=== PATIENT | male | born 2000 | race Caucasian/White ===

== ENCOUNTER 2024-11-03 04:44 | Emergency (ER) | payer BC, SELFPAY ==
[2024-11-03 04:46] VITALS: BP 150/80; PULSE 115; RESP 18; TEMP 36.8; O2SAT 98
[2024-11-03 04:49] VITALS: BP 150/80; PULSE 112; RESP 18; TEMP 36.8; O2SAT 99
--- NOTE | 2024-11-03 05:09 | EDS_ITS ---
HPI History of Present Illness Chief Complaint: General Illness Informant: patient Narrative Narrative: 24-year-old male wondering if he had a heat stroke. 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 That went away and he felt better, but he comes off of shift this morning feeling very hot, he had been sweating the whole time, he is fatigued, and he has pain in his hands and feet that he states is related to a rash that has been there for the last 2 or 3 days. He also has a sore throat. He has been drinking plenty of fluids, he had 4 or 5 bottles of water this past shift supervisor. [facility] Medical History Broken wrist Medical History no medical history Home Medications ?Medication ?Instructions ?Recorded ?Last Taken ?Type NK 11/03/24 Unknown History Allergy/AdvReac Type Severity Reaction Status Date / Time No Known Allergies Allergy Verified 11/03/24 04:45 Family History no significant family his Social History Smoking Status: Never smoker ROS ROS ED Constitutional Constitutional ED: Reports chills, fever(s) and sweats Eyes Eyes: Denies change in vision or diplopia ENT ENT ED: Reports sore throat; Denies rhinorrhea Cardiovascular Cardiovascular: Denies chest pain or palpitations Respiratory/Chest Respiratory/Chest: Denies cough or dyspnea Gastrointestinal Gastrointestinal: Denies abdominal pain, diarrhea, nausea or vomiting Genitourinary Genitourinary ED: Denies dysuria or hematuria Musculoskeletal Musculoskeletal: Reports as per HPI and extremity pain; Denies back pain or neck pain Integumentary Reports rash; Denies abscess Neurologic Neurologic: Reports headache(s); Denies paresthesias or weakness Psychiatric Psychiatric: Denies anxiety or suicidal thoughts EXAM Physical Exam Const Vital Signs: 11/03/24 04:46 11/03/24 04:46 11/03/24 04:49 Temperature 98.3 F 98.3 F Temperature Source Oral Oral Pulse Rate 115 H 112 H Respiratory Rate 18 18 Respiratory Pattern Normal Blood Pressure 150/80 H 150/80 H Blood Pressure Mean 103 103 Pulse Ox 98 99 Oxygen Delivery Method Room Air Room Air Positive well nourished and well developed Constitutional Narrative: Well-appearing General Appearance ED: well developed and NAD HEENT Reports moist mucous membranes HEENT Narrative: Some posterior pharyngeal erythema, there is 1 erythematous spot in the middle of the tongue. No hard palatal or oral mucosal lesions. No [place] spots. normocephalic and atraumatic Eyes PERRL and EOMs intact bilaterally Neck full ROM, no lymphadenopathy and supple Resp normal respiratory effort and clear to auscultation bilaterally Cardio regular rate, regular rhythm and no murmurs GI non-tender and non-distended Auscultation: normoactive bowel sounds Palpation: soft Back/Spine no CVA tenderness General Back: other FROM Extremity Extremity Narrative: There is an erythematous spotted rash on the palms and soles, faint erythema blanching none petechial. On the dorsum of his feet, there are a couple of raised erythematous lesions that are most consistent with papules, nonpetechial. General Extremety ED: Negative for edema, pulses abnormal or tenderness General Extremity: Negative for edema or pulses abnormal Neuro oriented x3, CN's II-XII intact bilaterally and no sensory deficits noted Sensorium / Orientation: awake and alert Motor Exam: strength 5/5 throughout Psych mental status grossly normal Skin no wounds Skin Narrative: Non-petechial blanching erythematous rash on the palms and soles which are tender, and some erythema in the posterior pharynx no other mucosal lesions. No other rash. MDM MDM MDM Narrative Medical decision making narrative: As I advised the patient, this is all consistent with usdz-wmsq-xqc-mouth disease and I propose that his fever from 3-4 days ago was related to that rather than heat-related illness. At this point the patient states that his son was diagnosed with hand-foot and mouth disease about a month ago. I think it is related. I offered some IV fluids since he feels hot and fatigued, and has a mild resting tachycardia. He preferred to do a urinalysis to see if he looked dehydrated first. This was done, it is normal except for a specific gravity of 1.025, suggesting mild dehydration. At this time his heart rate is 99 he feels well he is able to drink some fluids and declines an IV for IV fluids which I think is reasonable, especially since he is going home and to a cool environment they do have air conditioning. Advised to drink plenty of fluids. Lab Data Attestation: I reviewed the patient's lab results. Labs: Laboratory Results - last 24 hr 11/03/24 05:18 Urine Color Yellow Urine Clarity Clear Urine pH 5.0 Ur Specific [place] 1.025 Urine Protein 15 H Urine Glucose (UA) Normal Urine Ketones Negative Urine Occult Blood Negative Urine Nitrite Negative Urine Bilirubin Negative Urine Urobilinogen Normal Ur Leukocyte Esterase Negative Urine RBC 0 SEEN Urine WBC 0-5 SEEN Ur Squamous Epith Cells 0 SEEN Urine Bacteria RARE Urine Mucus RARE Discharge Plan Triage Chief Complaint: General Illness ED Provider: Timbo Calle Dx/Rx/DC Orders Clinical Impression: Hand, foot and mouth disease, Mild dehydration Instructions: Hand Foot Mouth Disease Prescriptions: No Action NK Primary Care Provider: Care Physician,No Primary Referrals: Care Physician,No Primary [Primary Care Provider] - 1 Week if not improving Print Language: Greek Disposition Disposition: Home, Self Care
--- OUTSIDE RECORDS SUMMARY | 2024-11-03 05:22 | XMS RPT_ITS | CCD ---
Author Organization [facility] Care Team Providers Care Traffic Checker Name Role Phone Yung Philip Attending Unavailable Assessment, Health Risk Attending Unavaila [employer] [facility] Care Physician, No Primary Primary Care Unava ilable Results Test Name Value Interpretation Reference Range Facil ity Comprehensive Metabolic Prof ilon 06-19-2022 ALB Normal 3.2-5.0 [facility] Comment on above: Result Comment: NO S HOW Performed By: #### L 500.4100, L500.4050, L3600.3400 #### [facility] [address] [place], [address] ALK P Normal 45-117 [facility] Comment on above: Result Comment: NO S HOW Performed By: #### L 500.4100, L500.4050, [id number] #### [facility] [address] [place], [address] ALT Normal 16-61 [facility] Comment on above: Result Comment: NO S HOW Performed By: #### L 500.4100, L500.4050, [id number] #### [facility] [address] [place], [address] AST Normal 15-37 [facility] Comment on above: Result Comment: NO S HOW Performed By: #### L 500.4100, L500.4050, [id number] #### [facility] [address] [place], [address] BUN Normal 7-18 [facility] Comment on above: Result Comment: NO S HOW Performed By: #### L 500.4100, L500.4050, [id number] #### [facility] [address] [place], [address] BUN/CRE Normal 10-20 [facility] Comment on above: Result Comment: NO S HOW Performed By: #### L 500.4100, L500.4050, [id number] #### [facility] [address] [place], [address] CA,Total Normal 8.5-10.1 [facility] Comment on above: Result Comment: NO S HOW Performed By: #### L 500.4100, L500.4050, [id number] #### [facility] [address] [place], [address] CL Normal 98-107 [facility] Comment on above: Result Comment: NO S HOW Performed By: #### L 500.4100, L500.4050, [id number] #### [facility] [address] [place], [address] CO2 Normal 21.0-32.0 [facility] Comment on above: Result Comment: NO S HOW Performed By: #### L 500.4100, L500.4050, [id number] #### [facility] [address] [place], [address] CREAT,SERUM Normal 0.70-1.30 [facility] Comment on above: Result Comment: NO S HOW Performed By: #### L 500.4100, L500.4050, [id number] #### [facility] [address] [place], [address] EST GFR Normal >60 [facility] Comment on above: Result Comment: NO S HOW Performed By: #### L 500.4100, L500.4050, [id number] #### [facility] [address] [place], [address] EST GFR - AA Normal >60 [facility] Comment on above: Result Comment: NO S HOW Performed By: #### L 500.4100, L500.4050, [id number] #### [facility] [address] [place], [address] GAP Normal 5-15 [facility] Comment on above: Result Comment: NO S HOW Performed By: #### L 500.4100, L500.4050, [id number] #### [facility] [address] [place], [address] GLU Normal 74-106 [facility] Comment on above: Result Comment: NO S HOW Performed By: #### L 500.4100, L500.4050, [id number] #### [facility] [address] [place], [address] Potassium Normal 3.5-5.1 [facility] Comment on above: Result Comment: NO S HOW Performed By: #### L 500.4100, L500.4050, [id number] #### [facility] [address] [place], [address] T BILI Normal 0.20-1.00 [facility] Comment on above: Result Comment: NO S HOW Performed By: #### L 500.4100, L500.4050, [id number] #### [facility] [address] [place], [address] T PROT Normal 6.4-8.2 [facility] Comment on above: Result Comment: NO S HOW Performed By: #### L 500.4100, L500.4050, [id number] #### [facility] [address] [place], [address] Comprehensive Metabolic Profil Normal 136-145 [facility] Comment on above: Result Comment: NO S HOW Performed By: #### L 500.4100, L500.4050, [id number] #### [facility] [place] [facility] [address] [place], [address] Lipid Profileon 06-19-2022 CHOL Normal 200 [facility] Comment on above: Result Comment: NO S HOW Performed By: #### L 500.4100, L500.4050, [id number] #### [facility] [address] [place], [address] HDL Normal [facility] Comment on above: Result Comment: NO S HOW Performed By: #### L 500.4100, L500.4050, [id number] #### [facility] [address] [place], [address] LDL Normal 0-130 [facility] Comment on above: Result Comment: NO S HOW Performed By: #### L 500.4100, L500.4050, [id number] #### [facility] [address] [place], [address] TRIG Normal [facility] Comment on above: Result Comment: NO S HOW Performed By: #### L 500.4100, L500.4050, [id number] #### [facility] [address] [place], [address] VLDL Normal 5-40 [facility] Comment on above: Result Comment: NO S HOW Performed By: #### L 500.4100, L500.4050, [id number] #### [facility] [address] [place], [address] Nicotine Screen Bloodon 0 COTININE BLOOD Normal CUTOFF= 0.3 [facility] Comment on above: Result Comment: NO S HOW Performed By: #### L 500.4100, L500.4050, [id number] #### [facility] [address] [place], [address] NICOTINE BLOOD Normal CUTOFF= 0.3 [facility] Comment on above: Result Comment: NO S HOW Performed By: #### L 500.4100, L500.4050, [id number] #### [facility] [address] [place], [address] Office Visit Reporton [address] [facility] [address] [place] [address] OFFICE VISIT Date of Service: 12/28/21 MR#: [id number] Acct: [id number] Patient: KWAN CRAIN Rep #: [id number] : 2000 Provider: MICHAELA north Age/Sex: 21/M Location: [facility] Status: Signed Intake Intake Visit Reasons: PE DRUG SCREEN/WILL-EDUARD Office Procedures Now [facility] Billing Sheet Testing Pre-Employment Drug Screen: Yes 01/01/22 0757 Date Yung Velázquez Signature: Date (if applicable) CC: Normal [facility] Encounters Encounter Date Encounter Type Care Provider Facility Start: 06-19-2022 ambulatory Health Risk Assessment Facility:[facility] Start: 12-28-2021 End: 12-28-2021 ambulatory Yung Philip Facility:[facility] Payers Date Payer Category Payer Self-pay Unknown [id number] [id number] Unknown [id number] [id number]. [id number] Summary Purpose Family History No Family History Records Found Advance Directives No Advanced Directives Records Found Additional Source Comments (unrecognized sect ion and content) No Status Records Found INFORMATION SOURCE (unrecogn ized section and content) DATE CREATED AUTHOR 06/22/2022 [facility] FOR RECORDS PERTAINING TO PATIENTS WHO ARE OR HAVE BEEN ENROLLED IN A CHEMICAL DEPENDENCY/SUBSTANCEABUSE PROGRAM, SOME INFORMATION MAY BE OMITTED. This clinical summary was aggregated from multiple sources. Caution should be exercised in using it in the provision of clinical care. This summary normalizes information from multiple sources, and as a consequence, information in this document may materially change the coding, format and clinical context of patient data. In addition, data may be omitted in some cases. CLINICAL DECISIONS SHOULD BE BASED ON THE PRIMARY CLINICAL RECORDS. [facility]. provides no warranty or guarantee of the accuracy or completeness of information in this document.
[2024-11-03 05:24] LABS: Red Blood Cells-Urine 0 SEEN /hpf (0-5); Squamous Epithelial Cells - UA 0 SEEN /hpf (0-5)
[2024-11-03 05:29] LABS: Color, Urine Yellow (Yellow); Glucose, Dipstick Normal (Normal); Ketone-Dipstick Negative (Negative); Leukocyte Esterase-Dipstick Negative /ul (Negative); Nitrite-Dipstick Negative (Negative); Occult Blood-Urine Negative /ul (Negative); Protein-Dipstick 15 mg/dl (Negative); Specific Gravity, Urine 1.025 (1.002-1.030); Urine Bilirubin Dipstick Negative (Negative); Urine Clarity Clear (Clear); Urine Urobilinogen Normal (Normal)
[2024-11-03 06:05] LABS: Bacteria RARE /hpf (None Seen); Mucous, Urine RARE /hpf (<or=2+); White Blood Cells 0-5 SEEN /hpf (0-5)
[2024-11-03 06:33] VITALS: BP 128/73; PULSE 91; RESP 16; TEMP 36.3; O2SAT 99
== END 2024-11-03 06:33 | disposition home or self-care (01) ==
PROVIDERS: Emergency Provider Emergency Medicine; Visit Provider Emergency Medicine
DX: B08.4 Enteroviral vesicular stomatitis with exanthem (principal); E86.0 Dehydration
CPT/HCPCS: 81001; 99282

== ENCOUNTER 2025-04-17 01:39 | Emergency (ER) | payer BC, OTHER, SELFPAY ==
[2025-04-17 01:40] VITALS: BP 170/79; PULSE 80; RESP 15; TEMP 36.2; O2SAT 100; BMI 30.6
--- NOTE | 2025-04-17 02:13 | EX.ED.UPPERE ---
HPI History of Present Illness HPI Narrative: Patient was seen and examined after presenting to ED for evaluation of left finger injury he was at work working on some sort of machine was using a hammer ended up smacking the very distal tip of his left second digit no open wounds no medical problems. Chief Complaint: Upper Extremity Injury [facility] Medical History Broken wrist Home Medications ?Medication ?Instructions ?Recorded ?Last Taken ?Type NK 11/03/24 Unknown History Allergy/AdvReac Type Severity Reaction Status Date / Time No Known Allergies Allergy Verified 04/17/25 01:41 Social History Smoking Status: Never smoker ROS ROS ED ROS Narrative Pertinent Positives: Hammer injury to left second digit at the distal tip Pertinent Negatives: Open wounds bleeding disorders medications inability to move finger The remainder of review of systems negative unless otherwise stated in the HPI above. Systems reviewed including constitutional, psychiatric, cardiovascular, respiratory, integument, HENT, gastrointestinal. EXAM Physical Exam Narrative Exam Narrative: Afebrile hemodynamically stable does not appear toxic or in distress normocephalic atraumatic he has no open wounds to the digit some mild swelling involving the fingertip itself nail appears intact he has intact range of motion intact MSPs intact sensation to the distal tip of the finger does have tenderness on palpation of that distal tip Const Vital Signs: 04/17/25 01:40 Temperature 97.2 F L Temperature Source Temporal Pulse Rate 80 Respiratory Rate 15 Blood Pressure 170/79 H Blood Pressure Mean 109 Pulse Ox 100 Oxygen Delivery Method Room Air MDM MDM MDM Narrative Medical decision making narrative: Nursing notes, triage notes, available previous documentation, and vital signs were reviewed. Any discrepancies noted were addressed. Differential Diagnoses: We will evaluate for fracture but low suspicion for dislocation Imaging Reviewed: Personally reviewed and interpreted by me: Finger x-ray no dislocation I do not see any obvious fracture besides maybe a slight fracture at the very distal tip. Official x-ray interpretation reporting a fracture at the very distal tip of the finger. Previous Documentation Reviewed: None available or applicable at this time. ED Course: Patient presenting with workplace injury injury to his second digit with a hammer we will get x-rays he can go ahead and ice and take acetaminophen and ibuprofen. Patient has a fracture at the distal tip of the finger. He is stable for discharge This note was made utilizing voice recognition software. All attempts were made to correct spelling or other errors prior to note completion. However, due to the fast-paced nature of emergency medicine, some errors may still be present. Discharge Plan Triage Chief Complaint: Upper Extremity Injury ED Provider: Jd Neff Dx/Rx/DC Orders Clinical Impression: Injury, finger, Fracture of finger of left hand Instructions: ED Fracture, Finger, Closed Prescriptions: No Action NK Primary Care Provider: Care Physician,No Primary Referrals: Care Physician,No Primary [Primary Care Provider, Medical] Activity Restrictions/Additional Instructions: Ice your finger is much as you can tolerate follow-up with your primary care doctor it is broken otherwise known is fractured at the very tip of your finger Print Language: Andorran Disposition Disposition: Home, Self Care
--- NOTE | 2025-04-17 02:15 | RAD_ITS ---
PROCEDURE: FINGER(S) MIN 2 VIEWS 04/17/2025 REASON FOR EXAM: INJURY LEFT 2ND DIGIT TECHNIQUE: Procedure Code: RADFIN Modality: DX Procedure: FINGER(S) MIN 2 VIEWS Laterality: Left. COMPARISON: None. FINDINGS: Acute nondisplaced fracture of the tip of the distal phalanx of the 2nd finger. Overlying soft tissue edema and swelling. Normal metacarpal head. Normal metacarpophalangeal joint. Normal proximal phalanx. Normal middle phalanx. Normal proximal interphalangeal joint. Normal distal interphalangeal joint. RAD/Finger(s) Min 2 Views IMPRESSION: Acute nondisplaced fracture of the tip of the distal phalanx of the 2nd finger. Overlying soft tissue edema and swelling. [facility]
--- OUTSIDE RECORDS SUMMARY | 2025-04-17 02:53 | XMS RPT_ITS | CCD ---
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 Izquierdo Emergency Provider Timbo Calle Attending Unavailable Care Physician, No Primary Primary Care Unava ilable Problems Problem Classification Problem Date Documented Da te Episodic/Chronic Fluid and electrolyte disorders (1 source) Mild dehydration; Translations: [Dehydration] 11-03-2024 Episodic Other skin disorders (1 source) Rash and other nonspecific skin eruption; Translations: [Rash and other nonspecific skin eruption] Onset: 11-09-2024 Episodic Viral infection (1 source) Enteroviral vesicular stomatitis with exanthem; Translations: [Enteroviral vesicular stomatitis with exanthem] 11-03-2024 Episodic Results Test Name Value Interpretation Reference Range Facility Bilirubin Test strip Ql (U)O rdered By: Timbo Calle on 11-03-2024 Bilirubin Ql (U) Negative Negative [facility] Emergency Department Summary on 11-03-2024 Emergency Department Summary [facility] Medical Records Department [address] [place] [id number] Emergency Department Summary 11/03/24 MR#: [id number] Acct: [id number] Name: KWAN CHAPMAN Rep #: [id number] : 2000 24 From: Timbo Calle MD PCP: Care Physician,No Primary Status:REG ER Location: ED HPI History of Present Illness Chief Complaint: General Illness Informant: patient Narrative Narrative: 24-year-old male wondering if he had a heat stroke. 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 That went away and he felt better, but he comes off of shift this morning feeling very hot, he had been sweating the whole time, he is fatigued, and he has pain in his hands and feet that he states is related to a rash that has been there for the last 2 or 3 days. He also has a sore throat. 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 [facility] Medical History Broken wrist Medical History no medical history Home Medications ???Medication ???Instructions ???Recorded ???Last Taken ???Type NK 11/03/24 Unknown History Allergy/AdvReac Type Severity Reaction Status Date / Time No Known Allergies Allergy Verified 11/03/24 04:45 Family History no significant family his Social History Smoking Status: Never smoker ROS ROS ED Constitutional Constitutional ED: Reports chills, fever(s) and sweats Eyes Eyes: Denies change in vision or diplopia ENT ENT ED: Reports sore throat; Denies rhinorrhea Cardiovascular Cardiovascular: Denies chest pain or palpitations Respiratory/Chest Respiratory/Chest: Denies cough or dyspnea Gastrointestinal Gastrointestinal: Denies abdominal pain, diarrhea, nausea or vomiting Genitourinary Genitourinary ED: Denies dysuria or hematuria Musculoskeletal Musculoskeletal: Reports as per HPI and extremity pain; Denies back pain or neck pain Integumentary Reports rash; Denies abscess Neurologic Neurologic: Reports headache(s); Denies paresthesias or weakness Psychiatric Psychiatric: Denies anxiety or suicidal thoughts EXAM Physical Exam Const Vital Signs: 11/03/24 04:46 11/03/24 04:46 11/03/24 04:49 Temperature 98.3 F 98.3 F Temperature Source Oral Oral Pulse Rate 115 H 112 H Respiratory Rate 18 18 Respiratory Pattern Normal Blood Pressure 150/80 H 150/80 H Blood Pressure Mean 103 103 Pulse Ox 98 99 Oxygen Delivery Method Room Air Room Air Positive well nourished and well developed Constitutional Narrative: Well-appearing General Appearance ED: well developed and NAD HEENT Reports moist mucous membranes HEENT Narrative: Some posterior pharyngeal erythema, there is 1 erythematous spot in the middle of the tongue. No hard palatal or oral mucosal lesions. No Koplik spots. normocephalic and atraumatic Eyes PERRL and EOMs intact bilaterally Neck full ROM, no lymphadenopathy and supple Resp normal respiratory effort and clear to auscultation bilaterally Cardio regular rate, regular rhythm and no murmurs GI non-tender and non-distended Auscultation: normoactive bowel sounds Palpation: soft Back/Spine no CVA tenderness General Back: other FROM Extremity Extremity Narrative: There is an erythematous spotted rash on the palms and soles, faint erythema blanching none petechial. On the dorsum of his feet, there are a couple of raised erythematous lesions that are most consistent with papules, nonpetechial. General Extremety ED: Negative for edema, pulses abnormal or tenderness General Extremity: Negative for edema or pulses abnormal Neuro oriented x3, CN's II-XII intact bilaterally and no sensory deficits noted Sensorium / Orientation: awake and alert Motor Exam: strength 5/5 throughout Psych mental status grossly normal Skin no wounds Skin Narrative: Non-petechial blanching erythematous rash on the palms and soles which are tender, and some erythema in the posterior pharynx no other mucosal lesions. No other rash. MDM MDM MDM Narrative Medical decision making narrative: As I advised the patient, this is all consistent with xlte-gtgt-dwo-mouth disease and I propose that his fever from 3-4 days ago was related to that rather than heat-related illness. At this point the patient states that his son was diagnosed with hand-foot and mouth disease about a month ago. I think it is related. I offered some IV fluids since he feels hot and f (more content not included)... Normal [facility] Ketones Test strip Ql (U)Ord ered By: Timbo Calle on 11-03-2024 Ketones Ql (U) Negative Negative [facility] Microscopic analysis of urin e for red blood cells (RBC)Ordered By: Timbo Calle on 11-03-2024 Microscopic analysis of urine for red blood cells (RBC) 0 SEEN /hpf 0-5 [facility] Mucus LM Ql (Urine sed)Order ed By: Timbo Calle on 11-03-2024 Mucus Ql (Urine sed) RARE /hpf [facility] Nitrite Test strip Ql (U)Ord ered By: Timbo Calle on 11-03-2024 Nitrite Ql (U) Negative Negative [facility] Protein Test strip Ql (U)Ord ered By: Timbo Calle on 11-03-2024 Protein Ql (U) 15 mg/dl High Negative [facility] Squamous epithelial cells de tection in urine sediment by light microscopyOrdered By: Timbo Calle on 11-03-2024 Epithelial cells.squamous LM Ql (Urine sed) 0 SEEN /hpf 0-5 [facility] Urinalysis, Completeon 11-03 BACTERIA RARE Normal None Seen [facility] Comment on above: Order Comment: ROLANDA CTOR TO SPECIFY Performed By: #### L [id number] #### [facility] [address] [place], [address] Mucus Ql (Urine sed) RARE Normal [facility] Comment on above: Order Comment: ROLANDA CTOR TO SPECIFY Performed By: #### L [id number] #### [facility] [address] [place] [address] WBC 0-5 SEEN Normal 0-5 [facility] Comment on above: Order Comment: ROLANDA CTOR TO SPECIFY Performed By: #### L [id number] #### [facility] [address] [place], [address] BILIRUBIN URINE Negative Normal Negative [facility] Comment on above: Order Comment: ROLANDA CTOR TO SPECIFY Performed By: #### L [id number] #### [facility] [address] [place] [address] Clarity (U) Clear Normal Clear [facility] Comment on above: Order Comment: ROLANDA CTOR TO SPECIFY Performed By: #### L [id number] #### [facility] [address] [place] [address] Color (U) Yellow Normal Yellow [facility] Comment on above: Order Comment: ROLANDA CTOR TO SPECIFY Performed By: #### L [id number] #### [facility] [address] [place], [address] GLUCOSE, UR Normal Normal Normal [facility] Comment on above: Order Comment: ROLANDA CTOR TO SPECIFY Performed By: #### L [id number] #### [facility] [address] [place], [address] KETONE UR Negative Normal Negative [facility] Comment on above: Order Comment: ROLANDA CTOR TO SPECIFY Performed By: #### L [id number] #### [facility] [address] [place], [address] LEUK ESTERASE Negative Normal Negative [facility] Comment on above: Order Comment: ROLANDA CTOR TO SPECIFY Performed By: #### L [id number] #### [facility] [address] [place], [address] Nitrite Ql (U) Negative Normal Negative [facility] Comment on above: Order Comment: ROLANDA CTOR TO SPECIFY Performed By: #### L [id number] #### [facility] [address] [place], [address] OCCULT BLOOD-UR Negative Normal Negative [facility] Comment on above: Order Comment: ROLANDA CTOR TO SPECIFY Performed By: #### L [id number] #### [facility] [address] [place], [address] pH UR 5.0 Normal 5.0 - 8.0 [facility] Comment on above: Order Comment: ROLANDA CTOR TO SPECIFY Performed By: #### L [id number] #### [facility] [address] [place], [address] PROT DIPSTX 15 mg/dl Abnormal Negative [facility] Comment on above: Order Comment: ROLANDA CTOR TO SPECIFY Performed By: #### L [id number] #### [facility] [address] [place], [address] SP.GR. DIPSTX 1.025 Normal 1.002-1.030 [facility] Comment on above: Order Comment: ROLANDA CTOR TO SPECIFY Performed By: #### L [id number] #### [facility] [address] [place], [address] UROBILI Normal Normal Normal [facility] Comment on above: Order Comment: ROLANDA CTOR TO SPECIFY Performed By: #### L [id number] #### [facility] [address] [place], [address] EPI,SQUAMOUS 0 SEEN Normal 0-5 [facility] Comment on above: Order Comment: ROLANDA CTOR TO SPECIFY Performed By: #### L [id number] #### [facility] [address] [place], [address] RBC 0 SEEN Normal 0-5 [facility] Comment on above: Order Comment: ROLANDA CTOR TO SPECIFY Performed By: #### L [id number] #### [facility] [address] [place], [address] Urine clarityOrdered By: Rui Calle on 11-03-2024 Clarity (U) Clear Clear [facility] Urine color determinationOrd ered By: Timbo Calle on 11-03-2024 Color (U) Yellow Yellow [facility] Urine glucose detectionOrder ed By: Timbo Calle on 11-03-2024 Glucose Ql (U) Normal mg/dl Normal [facility] Urine leukocyte esterase det ection by dipstickOrdered By: Timbo Calle on 11-03-2024 Leukocyte esterase Test strip Ql (U) Negative Negative [facility] Urine pHOrdered By: Timbo Calle on 11-03-2024 pH (U) 5.0 [pH] 5.0 - 8.0 [facility] Urine sediment bacteria coun t by microscopy (number/high power field)Ordered By: Timbo Calle on 11-03-2024 Bacteria LM.HPF (Urine sed) [#/Area] RARE /hpf None Seen [facility] Urine specific gravity measu rementOrdered By: Timbo Calle on 11-03-2024 Specific gravity (U) [Rel density] 1.025 1.002-1.030 [facility] Urine urobilinogen measureme ntOrdered By: Timbo Calle on 11-03-2024 Urobilinogen Ql (U) Normal mg/dl Normal [facility] White blood cell countOrdere d By: Timbo Calle on 11-03-2024 White blood cell count 0-5 SEEN /hpf 0-5 [facility] Vital Signs Date Time Vital Sign Value Performing Clinician Faci lity 11-03-2024 06:33-0400 Body temperature 97.4 [degF] No Primary Care Physician [facility] 11-03-2024 06:33-0400 Diastolic blood pressure 73 mm[Hg] No Primary Care Physician [facility] 11-03-2024 06:33-0400 Heart rate 91 /min No Primary Care Physician [facility] 11-03-2024 06:33-0400 Respiratory rate 16 /min No Primary Care Physician [facility] 11-03-2024 06:33-0400 SaO2% (BldA) [Mass fraction] 99 % No Primary Care Physician [facility] 11-03-2024 06:33-0400 Systolic blood pressure 128 mm[Hg] No Primary Care Physician [facility] 11-03-2024 04:46-0400 Body height 182.88 cm No Primary Care Physician [facility] Encounters Encounter Date Encounter Type Care Provider Facility Start: 11-03-2024 End: 11-03-2024 Emergency department patient visit No Primary Care Physician -Emergency Department Work Phone: Procedures Date Procedure Procedure Detail Performing Clinician Start: 11-03-2024 Urnls dip stick/tabl et reagent auto microscopy No Primary Care Physician Plan of Treatment Date Care Activity Detail Author Start: 11-03-2024 [facility] Patient Education Hand Foot Mouth Disease [facility] Work Phone: Patient referral [facility] Work Phone: Payers Date Payer Category Payer Self-pay 2024 Unknown [id number] Unknown [id number] Social History Date Type Detail Facility Start: 11-03-2024 Tobacco smoking stat us NHIS Never smoked tobacco (finding) [facility] Start: 2000 Sex Assigned At Male [facility] Mental Status Date Assessment Result Facility 11-03-2024 Cognitive function Level Of Cons ciousness Awake;Alert;Appropriate;Follow s Commands [facility] Work Phone: Discharge summary 11-03-2024 Note Date & Type Note Facility 11-03-2024 Discharge summary [facility] Discharge summary Note Date & Type Note Facility Discharge summary Note Date/Time November 03, 2024 6:12am [facility] Medical Records Department [address] [place] [address] Emergency Department Summary 11/03/24 MR#: [id number] Acct: [id number] Name: KWAN CHAPMAN Rep #:[id number] : 2000 24 From: Timbo Calle MD PCP: Care Physician,No Primary Status :REG ER Location: ED HPI History of Present Illness Chief Complaint: General Illness Informant: patient Narrative Narrative: 24-year-old male wondering if he had a heat stroke. 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 That went away and he felt better, but he comes off of shift this morning feeling very hot, he had been sweating the whole time, he is fatigued, and he has pain in his hands and feet that he statesis related to a rash that has been there for the last 2 or 3 days. He also has a sore throat. 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 [facility] Medical History Broken wrist Medical History no medical history Home Medications ?Medication ?Instructions ?Recorded ?Last Taken ?Type NK 11/03/24 Unknown History Allergy/AdvReac Type Severity Reaction Status Date / Time No Known Allergies Allergy Verified 11/03/24 04:45 Family History no significant family his Social History Smoking Status: Never smoker ROS ROS ED Constitutional Constitutional ED: Reports chills, fever(s) and sweats Eyes Eyes: Denies change in vision or diplopia ENT ENT ED: Reports sore throat; Denies rhinorrhea Cardiovascular Cardiovascular: Denies chest pain or palpitations Respiratory/Chest Respiratory/Chest: Denies cough or dyspnea Gastrointestinal Gastrointestinal: Denies abdominal pain, diarrhea, nausea or vomiting Genitourinary Genitourinary ED: Denies dysuria or hematuria Musculoskeletal Musculoskeletal: Reports as per HPI and extremity pain; Denies back pain or neckpain Integumentary Reports rash; Denies abscess Neurologic Neurologic: Reports headache(s); Denies paresthesias or weakness Psychiatric Psychiatric: Denies anxiety or suicidal thoughts EXAM Physical Exam Const Vital Signs: 11/03/24 04:46 11/03/24 04:46 11/03/24 04:49 Temperature 98.3 F 98.3 F Temperature Source Oral Oral Pulse Rate 115 H 112 H Respiratory Rate 18 18 Respiratory Pattern Normal Blood Pressure 150/80 H 150/80 H Blood Pressure Mean 103 103 Pulse Ox 98 99 Oxygen Delivery Method Room Air Room Air Positive well nourished and well developed Constitutional Narrative: Well-appearing General Appearance ED: well developed and NAD HEENT Reports moist mucous membranes HEENT Narrative: Some posterior pharyngeal erythema, there is 1 erythematous spot in the middle of the tongue. No hard palatal or oral mucosal lesions. No Koplik spots. normocephalic and atraumatic Eyes PERRL and EOMs intact bilaterally Neck full ROM, no lymphadenopathy and supple Resp normal respiratory effort and clear to auscultation bilaterally Cardio regular rate, regular rhythm and no murmurs GI non-tender and non-distended Auscultation: normoactive bowel sounds Palpation: soft Back/Spine no CVA tenderness General Back: other FROM Extremity Extremity Narrative: There is an erythematous spotted rash on the palms and soles, faint erythema blanching none petechial. On the dorsum of his feet, there are a couple of raised erythematous lesions that are most consistent with papules, nonpetechial. General Extremety ED: Negative for edema, pulses abnormal or tenderness General Extremity: Negative for edema or pulses abnormal Neuro oriented x3, CN's II-XII intact bilaterally and no sensory deficits noted Sensorium / Orientation: awake and alert Motor Exam: strength 5/5 throughout Psych mental status grossly normal Skin no wounds Skin Narrative: Non-petechial blanching erythematous rash on the palms and soles which are tender, and some erythema in the posterior pharynx no other mucosal lesions. Noother rash. MDM MDM MDM Narrative Medical decision making narrative: As I advised the patient, this is all consistent with rqzs-moyf-hxm-mouth disease and I propose that his fever from 3-4 days ago was related to that rather thanheat-related illness. At this point the patient states that his son was diagnosed with hand-foot and mouth disease about a month ago. I think it is related. I offered some IV fluids since he feels hot and fatigued, and has a mild resting tachycardia. He preferred to do a urinalysis to see if he looked dehydrated first. This was done, it is normal except for a specific gravity of 1.025, suggesting mild dehydration. At this time his heart rate is 99 he feels well he is able to drink some fluids and declines an IV for IV fluids which I think is reasonable, especially since he is going home and to a cool environmentthey do have air conditioning. Advised to drink plenty of fluids. Lab Data Attestation: I reviewed the patient's lab results. Labs: Laboratory Results - last 24 hr 11/03/24 05:18 Urine Color Yellow Urine Clarity Clear Urine pH 5.0 Ur Specific [place] 1.025 Urine Protein 15 H Urine Glucose (UA) Normal Urine Ketones Negative Urine Occult Blood Negative Urine Nitrite Negative Urine Bilirubin Negative Urine Urobilinogen Normal Ur Leukocyte Esterase Negative Urine RBC 0 SEEN Urine WBC 0-5 SEEN Ur Squamous Epith Cells 0 SEEN Urine Bacteria RARE Urine Mucus RARE Discharge Plan Triage Chief Complaint: General Illness ED Provider: Timbo Calle Dx/Rx/DC Orders Clinical Impression: Hand, foot and mouth disease, Mild dehydration Instructions: Hand Foot Mouth Disease Prescriptions: No Action NK Primary Care Provider: Care Physician,No Primary Referrals: Care Physician,No Primary [Primary Care Provider] - 1 Week if not improving Print Language: Greek Disposition Disposition: Home, Self Care What to do if you have Problems For any increased pain, shortness of breath, bleeding, nausea or vomiting, chestpain, or any unexpected problems, contact your Primary Care Provider. Call [facility] ([phone]) or report to the closest Emergency Room. Call 911 if necessary. 11/03/24 0612 <Electronically signed by Timbo Calle MD> Cosigner Signature (if applicable): CC: No Primary Care Physician ~ Signed [facility] Work Phone: Evaluation note Note Date & Type Note Facility Evaluation note No assessment information availa ble [facility] Work Phone: Reason for referral (narrative) Note Date & Type Note Facility Reason for referral (narrative) No reason for referral information available [facility] Work Phone: Chief Complaint and Reason for Visit Chief Complaint Admit Date GENERAL ILLNESS November 03, 2024 4:44 am Advance Directives No Advanced Directives Records Found Advance Directive Response Recorded Date/ Time Do you have a Healthcare Power of Driver'S License Reviewing Officer? No November 03, 2024 4:46am Summary Purpose Family History No Family History Records Found Additional Source Comments Care Teams (unrecognized sec tion and content) Team Status: Active Member Role Status Dates No Primary Care Physician Primary Care Provider Active Team Status: Inactive Member Role Status Dates No Primary Care Physician Primary Care Provider Active Start: November 03, 2024 End: November 03, 2024 Dr. Timbo Calle MD Emergency Provider Active Start: November 03, 2024 End: November 03, 2024 Goals (unrecognized section and content) Goals may be documented in a n alternate section (unrecognized sect ion and content) No Status Records Found INFORMATION SOURCE (unrecogn ized section and content) DATE CREATED AUTHOR 11/09/2024 [facility] FOR RECORDS PERTAINING TO PATIENTS WHO ARE [...] BE BASED ON THE PRIMARY CLINICAL RECORDS. [facility] provides no warranty or guarantee of the accuracy or completeness of information in this document.
[2025-04-17 04:06] VITALS: BP 143/91; PULSE 79; RESP 16; TEMP 36.6; O2SAT 98
== END 2025-04-17 04:13 | disposition home or self-care (01) ==
PROVIDERS: Emergency Provider Specialist/Technologist Athletic Trainer; Visit Provider Specialist/Technologist Athletic Trainer
DX: S62.661A Nondisplaced fracture of distal phalanx of left index finger, initial encounter for closed fracture (principal); W27.0XXA Contact with workbench tool, initial encounter
CPT/HCPCS: 73140; 99282